=== PATIENT | female | born 1960 | race African-American/Black ===

== ENCOUNTER 2017-01-03 05:13 | Emergency (ER) | payer BC ==
[~2017-01-03] VITALS: Ht 162.6 cm; Wt 80.0 kg
[~2017-01-03 05:13] MED LIST: CART240C4 PO; CLON.1 PO; HYDR-2768 PO; MAGN500T4 PO; POTA-243 PO
[2017-01-03 05:14] VITALS: BP 154/78; PULSE 84; RESP 16; TEMP 98; O2SAT 99
[2017-01-03] MEDS ORDERED: HYDR25TA5 PO (05:39)
[2017-01-03] MEDS ORDERED: CLON0.1T PO (05:39)
[2017-01-03] MEDS ORDERED: ATOR10TA15 PO (05:39)
[2017-01-03] MEDS ORDERED: METO25TA3 PO (05:39)
[2017-01-03] MEDS ORDERED: CART120C PO (05:39)
[2017-01-03] MEDS ORDERED: FLUT1INH INH (05:41)
[2017-01-03] MEDS ORDERED: DEXAMETHASONE SOD PHOS 20 MG/5 ML VIAL IV PUSH ONE (06:00)
[2017-01-03] MEDS ORDERED: NAPR-855 PO (06:41)
--- NOTE | 2017-01-03 06:41 | PD ---
HPI Chief Complaint: Respiratory Symptoms Time Seen by Provider: 05:29 Travel History International Travel<30 days: No Contact w/Intl Traveler<30days: No Traveled to known affect area: No History of Present Illness HPI So 56 year-old woman presents to the emergency department complaining of being sick for the past couple weeks with subjective chills, sore throat, cough, now worsening sore throat and a feeling that when she woke up she was choking on her secretions. She also describes voice change since that same time. Subjective chills but no definite fever. History Past Medical History Narrative Medical CAD Hypertension hyperlipidemia COPD Tetanus Vaccination: > 5 Years Influenza Vaccination: No Menopausal: Yes Social History Alcohol Use: Yes (SOCIALLY) Tobacco Use: Yes (<1/2 PPD) Allergies-Medications (Allergen,Severity, Reaction): Coded Allergies: acetaminophen (Unverified Allergy, Severe, ITCHING WELTS, 01/03/17) aspirin (Unverified Allergy, Severe, ITCHING WELTS, 01/03/17) hydrocodone (Unverified Allergy, Severe, ITCHING WELTS, 01/03/17) penicillin G (Unverified Allergy, Severe, 01/03/17) Reported Meds & Prescriptions Reported Meds & Active Scripts Active Reported Breo Ellipta Inh (Fluticasone/Vilanterol) 100-25 Mcg/Act Inh 1 Puff INH DAILY Use daily at the same time. Hydrochlorothiazide 25 Mg Tab 25 Mg PO DAILY Clonidine (Clonidine HCl) 0.1 Mg Tab 0.1 Mg PO BID Atorvastatin (Atorvastatin Calcium) 10 Mg Tab 10 Mg PO HS Metoprolol Tartrate 25 Mg Tab 25 Mg PO BID Cartia Xt (Diltiazem ER 24 HR) 120 Mg Caper 180 Mg PO DAILY Review of Systems Except as stated in HPI: all other systems reviewed are Neg Physical Exam Narrative GENERAL: Well-appearing 56 year-old woman, no acute distress. SKIN: Focused skin assessment warm/dry. HEAD: Atraumatic. Normocephalic. EYES: Pupils equal and round. No scleral icterus. No injection or drainage. ENT: No nasal bleeding or discharge. Mucous membranes pink and moist. TMs are normal. Throat is mostly normal, there may be a tiny amount of asymmetry of swelling in the right tonsil but appears fairly faint, without any uvular deviation or really significant asymmetry or swelling. NECK: Trachea midline. Tender anterior cervical adenopathy. CARDIOVASCULAR: Regular rate and rhythm. No murmur appreciated. RESPIRATORY: No accessory muscle use. Clear to auscultation. Breath sounds equal bilaterally. GASTROINTESTINAL: Abdomen soft, non-tender, nondistended. Hepatic and splenic margins not palpable. MUSCULOSKELETAL: No obvious deformities. No clubbing. No cyanosis. No edema. NEUROLOGICAL: Awake and alert. No obvious cranial nerve deficits. Motor grossly within normal limits. Normal speech. PSYCHIATRIC: Appropriate mood and affect; insight and judgment normal. Data Data Last Documented VS Vital Signs Date Time Temp Pulse Resp B/P (MAP) Pulse Ox O2 Delivery O2 Flow Rate FiO2 01/03/17 05:14 98.0 84 16 154/78 (103) 99 Room Air Orders Orders Dexamethasone Inj (Decadron Inj) (01/03/17 06:00) Iv Access Insert/Monitor (01/03/17 05:52) Group A Rapid Strep Screen (01/03/17 05:52) Diphenhydramine (Benadryl) (01/03/17 06:45) Strep Culture (Group A) (01/03/17 05:54) MDM Medical Decision Making Medical Screen Exam Complete: Yes Emergency Medical Condition: Yes Interpretation(s) rapid strep negative Differential Diagnosis tonsillitis, laryngitis, epiglottitis, other Narrative Course Medical decision making 56 year-old woman with some hoarseness, sore throat, painful swallowing. She is having no trouble handling secretions. There is no respiratory distress or drooling or other abnormality. She looks well. Exam shows some tender anterior cervical adenopathy but otherwise unremarkable. She is given some IV Decadron and developed some itching and asked for some Benadryl. Rapid strep is negative. Think this is likely laryngitis. Recommend supportive treatment. Diagnosis Primary Impression: Laryngitis Additional Instructions: take Naprosyn as prescribed. Follow-up with your primary doctor in the next 2-4 days if you're not completely well. Return to the emergency department for any new or worsening symptoms. Med/Other Pt SpecificInfo: Prescription(s) given Scripts Naproxen (Naproxen) 375 Mg Tab 375 MG PO BID, #10 TAB 0 Refills Prov: Nelson Snider MD 01/03/17 Disposition: 01 DISCHARGE HOME Condition: Stable Nelson Snider MD Jan 03, 2017 06:41
[2017-01-03] MEDS ORDERED: diphenhydrAMINE HCL 50 MG CAP PO ONE (06:45)
--- NOTE | 2017-01-03 12:20 | EKG ---
Date Performed: 01/03/2017 Time Performed: 05:34:39 PTAGE: 56 years EKG: SINUS BRADYCARDIA MARKED LEFT AXIS DEVIATION NONSPECIFIC T-WAVE ABNORMALITY ABNORMAL ECG Co mpared to PREVIOUS TRACING , T-wave changes are slightly more prominent, otherwise no significant c hange. PREVIOUS TRACIN03/21/2013 21.00 DOCTOR: Rony Damon Interpretating Date/Time 01/03/2017 12:18:20
== END 2017-01-03 06:54 | disposition home or self-care (01) ==
LOC: NEPC 05:13
DX: J04.0 Acute laryngitis (principal); R00.1 Bradycardia, unspecified; R94.31 Abnormal electrocardiogram [ECG] [EKG]; I25.10 Atherosclerotic heart disease of native coronary artery without angina pectoris; I10 Essential (primary) hypertension; E78.5 Hyperlipidemia, unspecified; J44.9 Chronic obstructive pulmonary disease, unspecified; F17.200 Nicotine dependence, unspecified, uncomplicated; Z79.899 Other long term (current) drug therapy
CPT/HCPCS: 87081; 87880; 93005; 96374; 99284; J1100; Q0163